=== PATIENT | male | born 1955 | race Caucasian/White ===

== ENCOUNTER 2017-08-02 11:54 | Observation (INO) | payer OTHER ==
[2017-08-02] MEDS ORDERED: Magnesium Hydroxide 400 MG/5 ML Susp 30 ML Cup PO PRN (12:37)
[2017-08-02] MEDS ORDERED: Ondansetron 4 MG/2 ML SDV IV PRN (12:37)
[2017-08-02] MEDS ORDERED: Temazepam 15 MG Cap PO PRN (12:37)
[2017-08-02] MEDS ORDERED: Levofloxacin/Dextrose 5%-Water 500 MG in Premix Bag 1 BAG IV SCH (12:45)
[2017-08-02 13:11] LABS: CHLORIDE,CL 100 mEq/L (98-106); SODIUM,NA 138 mEq/L (136-145)
[2017-08-02] MEDS: Acetaminophen 325 MG Tab PO PRN (16:46)
[2017-08-02] MEDS ORDERED: Sodium Chloride 0.9% 1,000 ML IV ONE (17:41)
[2017-08-02] MEDS ORDERED: Enoxaparin 30 MG/0.3 ML Syringe SUBCUT SCH (18:00)
[2017-08-02] MEDS ORDERED: Scopolamine 1.5 MG Transdermal Patch TOP SCH (18:00)
[2017-08-02] MEDS: Apixaban 5 MG Tab PO SCH (19:53)
[2017-08-02] MEDS: traMADol 50 MG Tab PO PRN (22:49)
[2017-08-03] MEDS: traMADol 50 MG Tab PO PRN ×3 (04:46→21:48)
[2017-08-03] MEDS: Apixaban 5 MG Tab PO SCH ×2 (07:41→19:54)
[2017-08-03] MEDS: Cholecalciferol (Vitamin D3) 1,000 Unit Tab PO SCH (07:42)
[2017-08-03] MEDS: Acetaminophen 325 MG Tab PO PRN ×2 (08:45→19:12)
--- NOTE | 2017-08-03 09:58 | PN ---
DATE: 08/03/2017 Sadi Stevens came in with status post right total knee cellulitis, question DVT. We did go ahead and ultrasound his veins. No DVT. On examination of the knees, it is less warm, the swelling is down, the redness is down. C-reactive protein is down. ASSESSMENT: CELLULITIS RIGHT LOWER EXTREMITY, STATUS POST RIGHT TOTAL KNEE. P: Continue present therapy. FERCHO/SAMAN /[id number]
[2017-08-03] MEDS: Levofloxacin/Dextrose 5%-Water 500 MG in Premix Bag 1 BAG IV SCH (11:49)
[2017-08-03] MEDS: Enoxaparin 30 MG/0.3 ML Syringe SUBCUT SCH (19:55)
[2017-08-04] MEDS: Cholecalciferol (Vitamin D3) 1,000 Unit Tab PO SCH (07:16)
[2017-08-04] MEDS: traMADol 50 MG Tab PO PRN ×2 (07:17→22:37)
[2017-08-04] MEDS: Apixaban 5 MG Tab PO SCH ×2 (07:17→19:21)
[2017-08-04] MEDS: Celecoxib 100 MG Cap PO SCH ×2 (08:26→16:49)
--- NOTE | 2017-08-04 08:57 | PN ---
DATE: 08/04/2017 S: Sadi Stevens is in with cellulitis of his right lower extremity, status post right total knee. O: EXTREMITIES: Inflammation is down. Edema is down. I still see no evidence of a septic bursitis-type things. LABORATORY DATA: C-reactive protein is down to 6. ASSESSMENT: CELLULITIS. P: Continue present therapy. FERCHO/SAMAN /[id number]
[2017-08-04] MEDS: Levofloxacin/Dextrose 5%-Water 500 MG in Premix Bag 1 BAG IV SCH (12:32)
[2017-08-04] MEDS: Enoxaparin 30 MG/0.3 ML Syringe SUBCUT SCH (19:22)
[2017-08-05] MEDS: traMADol 50 MG Tab PO PRN ×2 (06:50→14:14)
[2017-08-05] MEDS: Celecoxib 100 MG Cap PO SCH (07:12)
[2017-08-05] MEDS: Cholecalciferol (Vitamin D3) 1,000 Unit Tab PO SCH (07:12)
[2017-08-05] MEDS: Apixaban 5 MG Tab PO SCH (07:12)
--- NOTE | 2017-08-05 08:28 | PCM.DCSUM1 ---
Discharge Summary - Hospital Course HPI Initial Comments: Sadi is a pleasant 62 year old male who was admitted to the hospital with RLE cellulitis. He was status post Right TKA. He came to the clinic with increased swelling and redness surrounding his right knee and streaking down his anterior ortiz. His leg was very swollen in comparison to his LLE. He had not had any fever or chills. He was having increased pain and warmth to the RLE. US of RLE was negative for DVT. Patient was treated with IV levaquin. CRP trended down throughout hospital stay, was 4.8 at time of discharge. WBC was normal. Patient will be discharged home on 500 mg Levaquin Po daily x 10 days. Patient will follow up with Dr. Diggs on 08/13/2017 for a recheck and staple removal. - Discharge Data Discharge Date: 08/05/17 Discharge Disposition: Home, Self-Care 01 Condition: Good - Discharge Diagnosis/Problem(s) (1) Cellulitis of right lower extremity SNOMED Code(s): 959851275 ICD Code: L03.115 - CELLULITIS OF RIGHT LOWER LIMB Status: Acute Current Visit: Yes (2) Status post total right knee replacement SNOMED Code(s): 8427935427594 ICD Code: Z96.651 - PRESENCE OF RIGHT ARTIFICIAL KNEE JOINT Status: Acute Current Visit: Yes - Patient Summary/Data Consults: Consultations 08/03/17 08:03 Consult to Physical Therapy [PT Evaluation and Treatment] [CONS] Routine - Patient Instructions Diet: Usual Diet as Tolerated Activity: As Tolerated Showering/Bathing: May Shower, No Tub Bathing/Swimming Wound/Incision Care: Keep Operative Site/Wound Site Clean and Dry Notify Provider of: Fever, Increased Pain, Swelling and Redness, Drainage, Nausea and/or Vomiting - Discharge Plan Prescriptions/Med Rec: Levofloxacin [IJP: Levofloxacin] 500 mg PO DAILY #10 tab Home Medications: Home Meds Apixaban [Eliquis] 2.5 mg PO BID 08/02/17 [History] Betamethasone/Clotrimazole [Lotrisone] 1 applic TOP DAILY PRN 08/02/17 [History] Cholecalciferol (Vitamin D3) [Vitamin D3] 1,000 unit PO DAILY 08/02/17 [History] Guaifenesin/Pseudoephedrne HCl [Mucinex D ER Tablet] 1 tab PO DAILY 08/02/17 [ History] Ibuprofen [Advil] 200 mg PO Q6H PRN 08/02/17 [History] Saw [place] 1 tab PO DAILY 08/02/17 [History] Scopolamine [Transderm-Scop] 1 applic TOP Q72H 08/02/17 [History] Ubidecarenone [Co Q-10] 30 mg PO DAILY 08/02/17 [History] traMADol HCl [Tramadol HCl] 50 mg PO Q6H PRN 08/02/17 [History] Celecoxib [CeleBREX] 200 mg PO BIDMEALS cap 08/05/17 [Rx] Levofloxacin [IJP: Levofloxacin] 500 mg PO DAILY #10 tab 08/05/17 [Rx] Patient Handouts: Cellulitis, Adult, Total Knee Replacement, Care After, Easy- to-Read - General Info Date of Service: 08/05/17 Admission Dx/Problem (Free Text: RLE Cellulitis S/P Right TKA Functional Status: Reports: Pain Controlled, Tolerating Diet, Ambulating, Urinating. Denies: New Symptoms - Review of Systems General: Reports: No Symptoms. Denies: Fever, Weakness, Fatigue, Chills Pulmonary: Reports: No Symptoms Cardiovascular: Reports: No Symptoms Gastrointestinal: Reports: No Symptoms Musculoskeletal: Reports: Joint Pain (right knee), Joint Swelling (right knee) Skin: Reports: Other (redness to right knee and anterior ortiz) Neurological: Reports: No Symptoms Psychiatric: Reports: No Symptoms - Patient Data Vitals - Most Recent: Last Vital Signs Temp 97.9 F 08/04/17 19:53 Pulse 81 08/04/17 19:53 Resp 16 08/04/17 19:53 BP 135/73 08/04/17 19:53 Pulse Ox 100 08/04/17 19:53 Weight - Most Recent: 190 lb 14.725 oz Lab Results - Last 24 hrs: Laboratory Results - last 24 hr 08/05/17 Range/Units 06:00 C-Reactive Protein 4.8 H (0.2-0.8) mg/dL Med Orders - Current: Current Medications Acetaminophen (Tylenol) 650 mg PO Q4H PRN PRN Reason: Pain (Mild 1-3)/fever Last Admin: 08/03/17 19:12 Dose: 650 mg Apixaban (Eliquis) 2.5 mg PO BID [facility] Last Admin: 08/05/17 07:12 Dose: 2.5 mg Celecoxib (Celebrex) 200 mg PO BIDMEALS [facility] Last Admin: 08/05/17 07:12 Dose: 200 mg Cholecalciferol (Vitamin D3) 1,000 units PO DAILY [facility] Last Admin: 08/05/17 07:12 Dose: 1,000 units Enoxaparin Sodium (Lovenox) 30 mg SUBCUT DAILY@2000 [facility] Last Admin: 08/04/17 19:22 Dose: 30 mg Levofloxacin/Dextrose 500 mg/ (Premix) 100 mls @ 100 mls/hr IV DAILY@1200 [facility] Last Admin: 08/04/17 12:32 Dose: 100 mls/hr Magnesium Hydroxide (Milk Of Magnesia) 30 ml PO Q12H PRN PRN Reason: Constipation Ondansetron HCl (Zofran) 4 mg IV Q6H PRN PRN Reason: Nausea/Vomiting Scopolamine (Transderm-Scop) 1.5 mg TOP Q72H [facility] Last Admin: 08/02/17 18:07 Dose: 1.5 mg Temazepam (Restoril) 15 mg PO BEDTIME PRN PRN Reason: Sleep Tramadol HCl (Ultram) 50 mg PO Q6H PRN PRN Reason: Pain Last Admin: 08/05/17 06:50 Dose: 50 mg Discontinued Medications Enoxaparin Sodium (Lovenox) 30 mg SUBCUT Q24H [facility] Last Admin: 08/02/17 17:58 Dose: 30 mg Levofloxacin/Dextrose 500 mg/ (Premix) 100 mls @ 100 mls/hr IV Q24H [facility] Last Admin: 08/02/17 14:27 Dose: 100 mls/hr Sodium Chloride (Normal Saline) 1,000 mls @ 100 mls/hr IV ONETIME ONE Stop: 08/03/17 03:40 Last Admin: 08/02/17 17:59 Dose: 100 mls/hr - Exam Quality Assessment: Reports: DVT Prophylaxis General: Reports: Alert, Oriented Neck: Reports: Supple Lungs: Reports: Clear to Auscultation, Normal Respiratory Effort Cardiovascular: Reports: Regular Rate, Regular Rhythm Extremities: Normal Capillary Refill, Joint Swelling, Limited Range of Motion ( right knee), Increased Warmth (right lower extremity), Redness (RLE, knee and anterior ortiz, improving) Wound/Incisions: Reports: Dressing Dry and Intact, No Drainage, Erythema Improving Neurological: Reports: No New Focal Deficit Psy/Mental Status: Reports: Alert, Normal Affect, Normal Mood *Q Meaningful Use (DIS) - VTE *Q VTE Criteria *Q: - Stroke *Q Stroke Criteria *Q: - AMI *Q AMI Criteria *Q:
[2017-08-05] MEDS ORDERED: Levofloxacin/Dextrose 5%-Water 500 MG in Premix Bag 1 BAG IV SCH (09:00)
== END 2017-08-05 16:50 | disposition home or self-care (01) ==
LOC: CC.MS 11:54 → UNDOADMIN 11:54 → CC.MS 12:38 → INTOOBSV 12:38
PROVIDERS: ADMIT General Practice; ATTEND General Practice
DX: L03.115 Cellulitis of right lower limb (principal); J30.9 Allergic rhinitis, unspecified; M70.31 Other bursitis of elbow, right elbow; E78.5 Hyperlipidemia, unspecified; I10 Essential (primary) hypertension; N40.1 Benign prostatic hyperplasia with lower urinary tract symptoms; R35.1 Nocturia; E55.9 Vitamin D deficiency, unspecified; Z96.651 Presence of right artificial knee joint; Z79.01 Long term (current) use of anticoagulants; Z79.899 Other long term (current) drug therapy; Z88.8 Allergy status to other drugs, medicaments and biological substances; Z88.0 Allergy status to penicillin
CPT/HCPCS: 36415; 80053; 81001; 83735; 85025; 85379; 85610; 86140; 93971-RT; 97110-GP; 97161-GP; 97530-GP; A9270-GY; J1650; J1956; J7030

== ENCOUNTER → 2019-08-18 | Day surgery (SDC) | payer OTHER ==
[~2019-08-18] MED LIST: Lactated Ringers 1,000 ML IV SCH; Propofol 200 MG/20 ML SDV IV ONE
--- NOTE | 2019-08-18 13:31 | OR ---
DATE OF OPERATION: 08/18/2019 PREOPERATIVE DIAGNOSIS: SCREENING COLONOSCOPY. POSTOPERATIVE DIAGNOSIS: SCREENING COLONOSCOPY. SURGEON: Monty Boyce MD PROCEDURE: FULL-LENGTH COLONOSCOPY. ANESTHESIA: MAC. COMPLICATIONS: None. SPECIMEN: None. FINDINGS: 1. Full-length colonoscopy. 2. Mild sigmoid diverticulosis. RECOMMENDATIONS: Followup colonoscopy in 10 years. INDICATIONS: The patient was in for routine physical. It has been 10 years since his last colonoscopy screen. We elected to proceed with a repeat screening exam. DESCRIPTION OF PROCEDURE: The patient was prepped and draped, placed in the left lateral decubitus position. A lubricated Olympus colonoscope was inserted and easily advanced to the cecum. Direct visualization of the ileocecal valve and appendiceal orifice was accomplished. The bowel prep was excellent. Upon withdrawal of the scope, throughout the entire length of the colon, I could find no signs of any polyps, mass, ulceration, or bleeding sites. No vascular abnormalities or signs of colitis. There were a few scattered diverticula in the sigmoid colon, but very minimal. No inflammatory changes associated with this. The rectal vault was benign. Retroflexion showed no perianal lesions. Air was suctioned, scope removed without complication. PABLO/SAMAN /[id number]
== END ==
LOC: CC.SDS 08:48
PROVIDERS: ATTEND Family Medicine
DX: Z12.11 Encounter for screening for malignant neoplasm of colon (principal); K57.30 Diverticulosis of large intestine without perforation or abscess without bleeding; I10 Essential (primary) hypertension; E78.5 Hyperlipidemia, unspecified; G47.33 Obstructive sleep apnea (adult) (pediatric); N40.0 Benign prostatic hyperplasia without lower urinary tract symptoms; E55.9 Vitamin D deficiency, unspecified; G47.00 Insomnia, unspecified; N52.9 Male erectile dysfunction, unspecified; Z88.0 Allergy status to penicillin; Z88.8 Allergy status to other drugs, medicaments and biological substances; Z79.899 Other long term (current) drug therapy
CPT/HCPCS: G0121; J2704; J7120